=== PATIENT | female | born 1985 | race Caucasian/White ===

== ENCOUNTER 2023-06-19 22:53 | Emergency (ER) | payer MEDICAID ==
[~2023-06-19] VITALS: Ht 165.1 cm; Wt 86.2 kg
[2023-06-19 23:04] VITALS: BP_SYST 124; PULSE 128; RESP 20; TEMP 97.4; O2SAT 95
[2023-06-20] MEDS ORDERED: METH-776 PO (01:59)
[2023-06-20] MEDS ORDERED: AUG875 PO (01:59)
[2023-06-20 02:05] VITALS: BP_SYST 124; PULSE 128; RESP 20; TEMP 97.4; O2SAT 95
[2023-06-20] MEDS: cefTRIAXone 1 GM in LIDOCAINE 1%, 20 ML MDV 2.1 ML IM ONE (02:11)
== END 2023-06-20 02:08 | disposition home or self-care (01) ==
LOC: SED 22:53
DX: J18.9 Pneumonia, unspecified organism (principal); R05.9 Cough, unspecified; R06.02 Shortness of breath; R07.81 Pleurodynia; Z79.899 Other long term (current) drug therapy
CPT/HCPCS: 99283; 71045; 96372; J0696; J2001

== ENCOUNTER 2023-10-24 09:52 | Emergency (ER) | payer MEDICAID ==
[~2023-10-24] VITALS: Ht 165.1 cm; Wt 81.2 kg
[2023-10-24 09:52] VITALS: BP_SYST 123; PULSE 87; RESP 18; TEMP 98.7; O2SAT 98
[~2023-10-24 09:52] MED LIST: AUG875 PO; METH-776 PO
[2023-10-24] MEDS: CLINDAMYCIN HCL 150 MG CAPSULE PO ONE (10:12)
[2023-10-24 10:31] LABS: BASOPHILS % (AUTO) 1.1 % (0.0-2.0); EOSINOPHILS # (AUTO) 0.2 K/uL (0.0-0.4); EOSINOPHILS % (AUTO) 3.6 % (0.0-4.0); HEMATOCRIT 37.4 % (36-48); HEMOGLOBIN 12.7 g/dL (12.0-16.0); LYMPHOCYTES # (AUTO) 1.4 K/uL (1.0-5.5); LYMPHOCYTES % (AUTO) 31.1 % (20.5-51.5); MEAN CORPUSCULAR HEMOGLOBIN 31 pg (27-31); MEAN CORPUSCULAR HGB CONC 34 % (32-36); MEAN CORPUSCULAR VOLUME 90 fL (79.0-98.0); MONOCYTES # (AUTO) 0.3 K/uL (0.0-1.0); MONOCYTES % (AUTO) 7.8 % (1.7-9.3); NEUTROPHILS # (AUTO) 2.5 K/uL (1.8-7.7); NEUTROPHILS % (AUTO) 56.4 % (40.0-70.0); PLATELET COUNT (AUTO) 247 K/uL (130-430); RED BLOOD CELL COUNT(AUTO) 4.17 MIL/uL (4.2-6.2); WHITE BLOOD COUNT (AUTO) 4.5 K/uL (4.8-10.8)
[2023-10-24 10:57] LABS: PROTHROMBIN TIME 10.1 SECS (9.5-12.5)
[2023-10-24 11:09] LABS: CALCIUM 8.5 mg/dL (8.4-11.0); CREATININE 0.73 mg/dL (0.55-1.30); POTASSIUM 3.8 mmol/L (3.5-5.1)
[2023-10-24] MEDS ORDERED: CLIN-142 PO (11:24)
[2023-10-24 11:34] VITALS: BP_SYST 123; PULSE 87; RESP 18; TEMP 98.7; O2SAT 98
== END 2023-10-24 11:32 | disposition home or self-care (01) ==
LOC: SED 09:52
DX: L03.113 Cellulitis of right upper limb (principal); Z79.899 Other long term (current) drug therapy; Z79.2 Long term (current) use of antibiotics
CPT/HCPCS: 36415; 80048; 83605; 85025; 85610; 85730; 99283